=== PATIENT | female | born 1955 | race African-American/Black ===

== ENCOUNTER → 2020-06-19 | Outpatient (CLI) | payer OTHER | LOC: M.RAD 14:07 | PROVIDERS: ATTEND Internal Medicine | DX: Z12.31 Encounter for screening mammogram for malignant neoplasm of breast (principal); M54.41 Lumbago with sciatica, right side; M48.07 Spinal stenosis, lumbosacral region; M47.816 Spondylosis without myelopathy or radiculopathy, lumbar region; I70.0 Atherosclerosis of aorta; M17.11 Unilateral primary osteoarthritis, right knee; M19.09 Primary osteoarthritis, other specified site ==

== ENCOUNTER → 2020-06-27 | Outpatient (CLI) | payer OTHER | LOC: M.ULTRA 06-25 14:00 | PROVIDERS: ATTEND Internal Medicine | DX: M79.604 Pain in right leg (principal); M79.605 Pain in left leg ==